=== PATIENT | male | born 1950 | race Caucasian/White ===

== ENCOUNTER 2019-05-29 11:39 | Emergency (ER) | payer MEDICARE, BC ==
[~2019-05-29] VITALS: Ht 167.6 cm; Wt 68.9 kg
--- NOTE | 2019-05-29 11:45 | NUR ---
ED Nurse Note: Patient walked into ED c/o urinary retention accompanied by hesitancy, patient rates his pain a 5/10, states that it started this morning, patient is able to make urine however is only able to dribble, initial urine out put was around 5mL, patient placed in a picker tender helper, placed a garces catheter on patient, [address] tip. catheter is patent and draining, presents with a yellow colored urine with no clots. will wait for further orders
[2019-05-29 11:50] VITALS: BP 140/78
[2019-05-29] MEDS ORDERED: Lidocaine HCl 2% Jelly 6ml Tube TOPIC ONE ×2 (12:04→12:15)
--- NOTE | 2019-05-29 12:06 | Emergency Room Report ---
History of Present Illness General Chief Complaint: Male Urogenital Problems Source: Patient Present Illness HPI Patient is a 68-year-old male who presents after increased lower abdominal discomfort and difficulty with urination. Patient had been able to void small amounts however had been having increased difficulty with urination. Prior history of some prosthetic disease and had previously had Seals catheter placement in the past. He denies any fever. Reports having increased urgency with urination. Allergies: Coded Allergies: No Known Allergies (Unverified , 05/29/19) Patient History Past Medical History: see triage record Reviewed Nursing Documentation: PMH: Agreed; PSxH: Agreed Nursing Documentation-PMH Hx Asthma: Yes Hx Gastrointestinal Problems: Yes - BPH Review of Systems All Other Systems: negative except mentioned in HPI Physical Exam Vital Signs Date Time Temp Pulse Resp B/P (MAP) Pulse Ox O2 Delivery O2 Flow Rate FiO2 05/29/19 11:46 98.4 70 18 146/80 (102) 99 Room Air General Appearance: well appearing, no apparent distress, alert, GCS 15 Head: normocephalic, atraumatic ENT: normal voice, other - Decreased hearing Neck: full range of motion, supple Respiratory: lungs clear, normal breath sounds, no rhonchi, no respiratory distress, speaking full sentences Cardiovascular #1: normal inspection, normal peripheral pulses Gastrointestinal: normal inspection, other - suprapubic tenderness and distention Musculoskeletal: normal inspection, no calf tenderness Neurologic: normal inspection, alert, oriented x3, responsive, normal gait Psychiatric: mood/affect normal Skin: no rash Medical Decision Making Diagnostic Impression: Primary Impression: Urinary retention Additional Impression: Urinary tract infection ER Course Patient presented for increased urinary urgency. Differential diagnosis include was not limited to urinary retention, urinary infection, prostatitis among others. Patient has a benign exam and does not appear to require any imaging or laboratory testing at this time. Bedside ultrasound showed some evidence of retained large amount of urine after patient was able to void a very limited amount. Seals catheter was placed.Patient was given prescription for oral antibiotics. Patient stated that he would follow-up with his urologist on Friday. Labs Test 05/29/19 12:15 Urine Color Yellow Urine Appearance Slightly cloudy Urine pH 5 (4.5-8.0) Urine Specific [place] 1.020 (1.005-1.035) Urine Protein 1+ (NEGATIVE) Urine Glucose (UA) Negative (NEGATIVE) Urine Ketones 3+ (NEGATIVE) Urine Blood 2+ (NEGATIVE) Urine Nitrite Negative (NEGATIVE) Urine Bilirubin Negative (NEGATIVE) Urine Urobilinogen 1 MG/DL (0.0-1.0) Urine Leukocyte Esterase 2+ (NEGATIVE) Urine RBC 2-4 /HPF (0 - 0) Urine WBC 2-4 /HPF (0 - 0) Urine Squamous Epithelial Cells Occasional /LPF Urine Bacteria Moderate /HPF (NONE) Last Vital Signs Date Time Temp Pulse Resp B/P (MAP) Pulse Ox O2 Delivery O2 Flow Rate FiO2 05/29/19 11:46 98.4 70 18 146/80 (102) 99 Room Air Status: improved Disposition: HOME, SELF-CARE Condition: Stable Scripts Tamsulosin HCl (Flomax) 0.4 Mg Cap.er.24h 0.4 MG ORAL DAILY, #10 CAP Prov: Juancarlos Mendez MD 05/29/19 Phenazopyridine Hcl* (PYRIDIUM*) 200 Mg Tablet 200 MG ORAL THREE TIMES A DAY, #14 TAB 0 Refills Prov: Juancarlos Mendez MD 05/29/19 Trimethoprim/Sulfamethoxazole 160/800* (BACTRIM DS TABLET*) 1 Each Tablet 1 TAB ORAL Q12H, #14 TAB 0 Refills Prov: Juancarlos Mendez MD 05/29/19 Juancarlos Mendez MD May 29, 2019 12:06
[2019-05-29] MEDS ORDERED: Phenazopyridine 200mg tab ORAL ONE (12:45)
[2019-05-29 12:52] LABS: APPEARANCE,URINE SLIGHTLY CLOUDY; BILIRUBIN, URINE NEGATIVE (NEGATIVE); GLUCOSE, URINE (UA) NEGATIVE (NEGATIVE); KETONES,URINE 3+ (NEGATIVE); LEUKOCYTE ESTERASE ,URINE 2+ (NEGATIVE); NITRITE,URINE NEGATIVE (NEGATIVE); PH,URINE 5 (4.5-8.0); PROTEIN,URINE 1+ (NEGATIVE); UROBILINOGEN,URINE 1 MG/DL (0.0-1.0)
[2019-05-29 13:07] LABS: COLOR,URINE YELLOW
[2019-05-29] MEDS ORDERED: BACTRIM DS TAB1 EAC1 ORAL (13:12)
[2019-05-29] MEDS ORDERED: PHENAZOPYRIDIN200 MG ORAL (13:12)
[2019-05-29] MEDS ORDERED: FLOMAX0.4 MG ORAL (13:13)
--- NOTE | 2019-05-29 13:24 | NUR ---
ER DISCHARGE NOTE: Patient is cleared to be discharged per ERMD, pt is aox4, on room air, with stable vital signs. pt was given dc and prescription instructions, pt was able to verbalize understanding, pt id band removed. pt is able to ambulate with steady gait. pt took all belongings.
[2019-05-29 13:30] VITALS: BP 135/70
== END 2019-05-29 13:30 | disposition home or self-care (01) ==
LOC: EMR 12:42
DX: N39.0 Urinary tract infection, site not specified (principal); R33.9 Retention of urine, unspecified; J45.909 Unspecified asthma, uncomplicated
CPT/HCPCS: 81003; 87086; 99283